=== PATIENT | female | born 2005 | race Hispanic/Latino ===

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

== ENCOUNTER 2024-02-06 18:19 | Emergency (ER) | payer SELFPAY ==
[~2024-02-06] VITALS: Ht 167.6 cm; Wt 68.0 kg
[2024-02-06 18:31] VITALS: O2SAT 98
[2024-02-06 18:33] VITALS: BP 122/75; PULSE 112; RESP 16; TEMP 101.8
[2024-02-06 19:31] LABS: COVID19 (SARS ANTIGEN RAPID) PRESUMPTIVE NEGATIVE (NEGATIVE); INFLUENZA TYPE A Negative For Type A (NEGATIVE); INFLUENZA TYPE B Negative For Type B (NEGATIVE)
[2024-02-06 19:37] LABS: RAPID GROUP A STREP negative (NEGATIVE)
--- NOTE | 2024-02-06 20:22 | ERN ---
ED Note History of Present Illness Stated Complaint: CHEST PAIN, COUGH, THROAT PAIN, HEADACHE Chief Complaint: Sore Throat Time Seen by MD: 18:23 Time Seen by Midlevel: 18:23 Dictation: The patient is a 18-year-old female with no medical history who presents to the emergency department with complaints of sore throat, headache, fevers, dry cough, chest pain only when coughing onset yesterday. Patient reports mother tested positive for flu A and she was exposed to her. Denies any nausea, vom iting, diarrhea. Allergies: Coded Allergies: No Known Drug Allergies (Unverified Allergy, Unknown, 05/26/19) Past Medical History Past Medical History: No Pertinent History Surgical History: None LMP: Jan 31, 2024 : 0 Para: 0 Aborts: 0 RN Note Reviewed/Agreed w/PFSH: Yes Review of System Dictation Constitutional: Negative for chills, and weight loss positive for fever Eyes: Negative for injury, pain,redness, and discharge ENT: Negative for injury,pain or swelling Cardiovascular: Negative for palpitations, and edema positive for chest pain Respiratory: Negative for shortness of breath, and wheezing, positive for cough Abdomen/GI: Negative for abdominal pain, nausea, vomiting, diarrhea, and constipation Back: Negative for injury and pain : Negative for injury, bleeding and discharge MS/Extremity: Negative for injury and deformity Skin: Negative for rash, and discoloration Neuro: Negative for headache, weakness, numbness, tingling, and seizure Psych: Negative for suicide ideation, homicidal ideation, and hallucinations Initial Vital Sign VS Vital Signs Date Time Temp Pulse Resp B/P (MAP) Pulse Ox O2 Delivery O2 Flow Rate FiO2 02/06/24 18:31 101.8 112 16 122/75 98 Room Air* 0 21 Physical Exam Dictation Vital Signs reviewed General Appearance: Alert, oriented x 3, no acute distress, well developed, nourished. Head and Face: non-traumatic. Eyes: PERRL, pink conjunctivas, eyelid no trauma, anterior chamber with arcus senilis. Ears: Pinnas intact and no signs of trauma or erythema ear canals clear and no discharge TM no erythema Nose: No discharge, no bleeding. Oropharynx: Mouth normal, tongue pink. pharynx clear,no erythema, tonsils no exudates, no abscesses noted, mucous membrane moist Neck: Supple, non-tender, no thyromegaly, no masses, no JVD, no bruits Breast:Deferred Chest:No tenderness, no crepitus, no paradoxical movement, no retractions Lungs:Clear, well-ventilated, symmetric, no rales, no wheezing, no rhonchi, no stridor, good breath sounds bilaterally Heart: Regular rate, regular rhythm, no murmur, no gallops Vascular: no peripheral edema, Abdomen: Soft, positive bowel sounds, nondistended, no guarding, nontender, no rebound, no masses no hepatomegaly, no splenomegaly, no Burden's sign, no hernias. Rectal: Deferred Genital: Deferred Neurological: Normal speech, motor function intact, sensory function intact Musculoskeletal: Neck nontender, full range of motion, back nontender, full range of motion, Extremities: nontender, full range of motion Skin: Color pink, dry, no turgor, no rash, no lacerations, no abrasions, no contusions. Lymphatic: Deferred Results (Laboratory/Radiology) Laboratory/Radiology Laboratory Tests Test 02/06/24 18:38 Influenza Type A Antigen Negative For Type A Influenza Type B Antigen Negative For Type B SARS-CoV-2 Antigen (Rapid) PRESUMPTIVE NEGATIVE Group A Streptococcus Rapid negative (NEGATIVE) Labs Reviewed?: Yes ED Course ED Course Orders Procedure Category Date Status Time Influenza Type A & B, LAB 02/06/24 Complete Rapid 18:36 Covid19 (Sars Antigen LAB 02/06/24 Complete Rapid) 18:36 Rapid (Group A Strep) LAB 02/06/24 Complete 18:36 Acetaminophen 500mg PHA 02/06/24 Complete Tab (Tylenol 500mg T 19:00 Current Medications Medications (Trade) Dose Ordered Sig/Latia Route PRN Reason Start Time Stop Time Status Last Admin Dose Admin Acetaminophen (TYLenol 500MG TAB) 1,000 mg ONCE ONCE PO 02/06/24 19:00 02/06/24 19:01 DC 02/06/24 21:33 Vital Signs Date Time Temp Pulse Resp B/P (MAP) Pulse Ox O2 Delivery O2 Flow Rate FiO2 02/06/24 21:33 101.8 02/06/24 18:33 101.8 112 16 122/75 99 Room Air 0 02/06/24 18:31 101.8 112 16 122/75 98 Room Air* 0 21 Medical Decision Making MDM The patient is a 18-year-old female with no medical history who presents to the emergency department with complaints of sore throat, headache, fevers, dry cough, chest pain only when coughing onset yesterday. Patient reports mother tested positive for flu A and she was exposed to her. Denies any nausea, vomiting, diarrhea. Serology negative. Patient is symptoms consistent with upper respiratory infection. Clear lung sounds. Patient reported some chest discomfort with coughing. Patient low risk for any cardiac etiology. Pain most likely related to the cough. Patient in no acute distress. Will be discharged to follow up with PCP. Differential diagnosis: Flu a, flu B, strep Need for hospitalization: Patient does not meet criteria for hospitalization. There are no social concerns with this patient. DX & DISP Disposition: Discharge Departure Impression: Primary Impression: URI (upper respiratory infection) Additional Impressions: Cough, Fever Condition: Stable Additional Instructions: FOLLOW-UP WITH PRIMARY CARE PROVIDER IN 1 TO 2 DAYS. TAKE MEDICATIONS DIRECTED HERE IN THE EMERGENCY ROOM. OKAY TO CONTINUE HOME MEDICATIONS UNLESS OTHERWISE DISCUSSED DURING YOUR VISIT IN THE EMERGENCY ROOM TODAY. RETURN TO YOUR NEAREST EMERGENCY ROOM IF SYMPTOMS WORSEN OR IF THERE IS NO IMPROVEMENT. CALL 911 IF YOU NEED IMMEDIATE ASSISTANCE. TAKE TYLENOL OR MOTRIN OV [id number] NEEDED AND IF NO CONTRAINDICATIONS ARE PRESENT. INCREASE ORAL HYDRATION. A WOUND CULTURE OR URINE CULTURE WAS ORDERED HERE IN THE EMERGENCY ROOM DEPARTMENT PLEASE FOLLOW-UP WITH PRIMARY CARE PROVIDER AND ADVISE THEM TO GET REPEAT PORTS FROM OUR FACILITY. IF YOU HAD ANY SOUMYA WRAP/SPLINTS THAT WERE APPLIED HERE, PLEASE DO NOT REMOVE THEM UNTIL YOU SEE YOUR PRIMARY CARE OR SPECIALTY. Referrals: PADILLA DYER (PCP) Time of Disposition: 21:20 I have reviewed the case, and I agree with, Diagnosis and Plan ATTESTATION BY PHYSICIAN I PERFORMED THE SUBSTANTIVE PORTION OF THE VISIT. I HAVE REVIEWED AND PERSONALLY MADE AND APPROVED THE MANAGEMENT PLAN THAT IS DOCUMENTED IN THE NOTE BY MYSELF FOR THE A PP. I ACKNOWLEDGED FOR RESPONSIBILITY FOR THE PATIENT'S MANAGEMENT PLAN. MELLISA HILL Feb 06, 2024 20:22 SHELL HELTON MD Feb 07, 2024 05:07
[2024-02-06 21:33] VITALS: TEMP 101.9
[2024-02-06] MEDS: acetaMINOPHEN 500 MG TABLET PO ONE (21:33)
== END 2024-02-06 21:42 | disposition home or self-care (01) ==
LOC: EDH 18:19
DX: J06.9 Acute upper respiratory infection, unspecified (principal); Z20.822 Contact with and (suspected) exposure to COVID-19
CPT/HCPCS: 87426; 87804; 87880; 99283